=== PATIENT | male | born 1960 | race Hispanic/Latino ===

== ENCOUNTER 2017-10-18 16:57 | Emergency (ER) | payer MEDICAID ==
[~2017-10-18 16:57] MED LIST: ALBU8.5H8 PUFF; AMLO5TAB2 PO; ATOR40TA69 PO; FLUT1DIS3 PUFF; LISI-617 PO; METF500T6 PO; TAMS0.4C32 PO; TRAM50TA4 PO
[2017-10-18 17:45] LABS: BASOPHILS % (AUTO) 0.7 % (0.0-5.0); EOSINOPHILS % (AUTO) 1.5 % (0.0-8.0); LYMPHOCYTES % (AUTO) 25.2 % (21.0-51.0); MEAN CORPUSCULAR HEMOGLOBIN 30.2 pg (27.0-33.0); MEAN CORPUSCULAR HGB CONC 33.7 g/dL (32.0-36.0); MEAN CORPUSCULAR VOLUME 89.6 fL (79-99); MONOCYTES % (AUTO) 6.5 % (3.0-13.0); NEUTROPHILS % (AUTO) 66.1 % (40.0-77.0); PLATELET COUNT (AUTO) 267 K/uL (130-400); RED BLOOD CELL COUNT(AUTO) 4.69 MIL/uL (4.50-6.20); RED CELL DISTRIBUTION WIDTH 13.6 % (11.0-15.5); WHITE BLOOD COUNT (AUTO) 8.4 K/uL (4.8-10.8)
[2017-10-18 17:56] LABS: CREATININE 1.2 mg/dL (0.5-1.5)
[2017-10-18 17:57] LABS: INR 0.9 (0.85-1.15); PARTIAL THROMBOPLASTIN TIME 26.1 SEC (26.3-35.5); PROTHROMBIN TIME 9.5 SEC (9.6-11.6)
[2017-10-18] MEDS ORDERED: IOPAMIDOL-370 75 ML VIAL IV ONE (18:07)
[2017-10-18 18:09] LABS: ALBUMIN 3.6 g/dL (3.5-5.0); BILIRUBIN,TOTAL 0.3 mg/dL (0.2-1.0); CREATINE KINASE MB 1.6 ng/mL (0.5-3.6); TOTAL PROTEIN, SERUM 7.3 g/dL (6.0-8.3)
[2017-10-18] MEDS ORDERED: ONDANSETRON HCL MDV 20ML 2 MG/ML VIAL ONE (18:51)
[2017-10-18] MEDS ORDERED: MORPHINE SULFATE 4 MG/1ML SYG ONE (18:51)
[2017-10-18 19:14] LABS: APPEARANCE,URINE Clear (CLEAR); BILIRUBIN,URINE Negative (NEGATIVE); COLOR,URINE Yellow (YELLOW); GLUCOSE, URINE (UA) Negative (NEGATIVE); KETONES,URINE Negative (NEGATIVE); LEUKOCYTE ESTERASE ,URINE Negative (NEGATIVE); NITRATE,URINE Negative (NEGATIVE); OCCULT BLOOD,URINE Negative (NEGATIVE); PROTEIN,URINE Negative (NEGATIVE); UROBILINOGEN,URINE 0.2 mg/dL (0.2-1.0)
== END 2017-10-18 20:27 | disposition home or self-care (01) ==
LOC: EDH 16:57
DX: R10.30 Lower abdominal pain, unspecified (principal); E11.9 Type 2 diabetes mellitus without complications; I10 Essential (primary) hypertension; Z72.0 Tobacco use; Z98.890 Other specified postprocedural states
CPT/HCPCS: 36415; 74177; 80053; 81003; 82550; 82553; 83690; 84484; 85025; 85610; 85730; 93005; 96374; 96375; 99285; J2270; Q9967

== ENCOUNTER 2017-12-07 17:47 | Emergency (ER) | payer MEDICAID ==
[2017-12-07] MEDS ORDERED: KETOROLAC TROMETHAMINE 30MG/ML ONE (18:07)
[2017-12-07] MEDS ORDERED: SODIUM CHLORIDE 0.9% 1000ML 1,000 ML IV ONE (18:07)
[2017-12-07] MEDS ORDERED: ONDANSETRON HCL 4 MG/2 ML VIAL ONE (18:08)
[2017-12-07 18:13] LABS: BASOPHILS % (AUTO) 0.7 % (0.0-5.0); EOSINOPHILS % (AUTO) 0.9 % (0.0-8.0); HEMATOCRIT 40.9 % (42-54); LYMPHOCYTES % (AUTO) 23.3 % (21.0-51.0); MEAN CORPUSCULAR HEMOGLOBIN 30.9 pg (27.0-33.0); MEAN CORPUSCULAR HGB CONC 34.1 g/dL (32.0-36.0); MEAN CORPUSCULAR VOLUME 90.7 fL (79-99); MONOCYTES % (AUTO) 8.3 % (3.0-13.0); NEUTROPHILS % (AUTO) 66.8 % (40.0-77.0); PLATELET COUNT (AUTO) 247 K/uL (130-400); RED BLOOD CELL COUNT(AUTO) 4.51 MIL/uL (4.50-6.20); RED CELL DISTRIBUTION WIDTH 13.9 % (11.0-15.5); WHITE BLOOD COUNT (AUTO) 8.6 K/uL (4.8-10.8)
[2017-12-07 18:22] LABS: CREATININE 1.5 mg/dL (0.5-1.5)
[2017-12-07 18:27] LABS: BILIRUBIN,DIRECT 0.1 mg/dL (0.0-0.3); BILIRUBIN,TOTAL 0.4 mg/dL (0.2-1.0); TOTAL PROTEIN, SERUM 7.5 g/dL (6.0-8.3)
[2017-12-07 18:46] LABS: APPEARANCE,URINE CLOUDY (CLEAR); BILIRUBIN,URINE NEGATIVE (NEGATIVE); COLOR,URINE YELLOW (YELLOW); GLUCOSE, URINE (UA) NEGATIVE (NEGATIVE); KETONES,URINE NEGATIVE (NEGATIVE); LEUKOCYTE ESTERASE ,URINE NEGATIVE (NEGATIVE); NITRATE,URINE NEGATIVE (NEGATIVE); OCCULT BLOOD,URINE LARGE (NEGATIVE); PH,URINE 5.5 (5.0-8.0); PROTEIN,URINE TRACE (NEGATIVE); UROBILINOGEN,URINE 0.2 mg/dL (0.2-1.0)
[2017-12-07 19:00] LABS: RBC,URINE >100 /HPF (0-1); WBC,URINE 0-1 /HPF (0-1)
[2017-12-07 19:01] LABS: BACTERIA,URINE Few /HPF (None Seen); SQUAMOUS EPITHELIAL CELL,UR Rare /HPF (0-2); URIC ACID CRYSTALS,URINE Few /LPF (None Seen)
== END 2017-12-07 21:32 | disposition home or self-care (01) ==
LOC: EDH 17:47
DX: N23 Unspecified renal colic (principal); E11.9 Type 2 diabetes mellitus without complications; I10 Essential (primary) hypertension; Z72.0 Tobacco use
CPT/HCPCS: 36415; 74176; 80048; 80076; 81001; 82550; 83690; 85025; 93005; 96374; 96375; 99285; J1885; J2405; J7030

== ENCOUNTER → 2018-05-04 | Outpatient (CLI) | payer MEDICAID ==
[~2018-05-04] MED LIST changes: -AMLO5TAB2 PO; +AMLO5TAB7 PO; +METF-444 PO; -METF500T6 PO
== END | disposition home or self-care (01) ==
LOC: SHCH 07:35
PROVIDERS: ATTEND Internal Medicine Cardiovascular Disease
DX: I71.4 Abdominal aortic aneurysm, without rupture (principal)
CPT/HCPCS: 93978

== ENCOUNTER 2018-06-01 12:00 | Observation (INO) | payer MEDICAID ==
[~2018-06-01] VITALS: Ht 175.3 cm; Wt 78.5 kg
[~2018-06-01 12:00] MED LIST changes: -AMLO5TAB7 PO; +AMLO5TAB9 PO; -ATOR40TA69 PO; -TRAM50TA4 PO
[2018-08-17 11:41] VITALS: BP 140/73
[2018-08-17 11:43] LABS: CREATININE 1.1 mg/dL (0.5-1.5); POTASSIUM 4.4 mmol/L (3.5-5.1)
[2018-08-17] MEDS ORDERED: NEO/5DRO7 OU (13:01)
[2018-08-17] MEDS ORDERED: VITAMIN D2 PO (13:01)
[2018-08-17] MEDS ORDERED: METO25TA6 PO (13:01)
[2018-08-17] MEDS ORDERED: CEFAZOLIN SODIUM 1 GM VIAL IVP SCH (15:30)
[2018-08-18] VITALS (25 sets, daily range): BP systolic 103–146; BP diastolic 56–88
[2018-08-18] MEDS ORDERED: SODIUM CHLORIDE 0.9% 1000ML 1,000 ML IV ONE (06:37)
[2018-08-18] MEDS ORDERED: ONDANSETRON HCL 4 MG/2 ML VIAL ONE ×2 (07:26→10:36)
[2018-08-18] MEDS ORDERED: DEXAMETHASONE SOD PHOSPHATE 10MG/ML 1ML VIAL ONE (07:26)
[2018-08-18] MEDS ORDERED: FENTANYL CITRATE PF 50 MCG/1 ML 2ML VIAL ONE (07:26)
[2018-08-18] MEDS ORDERED: LIDOCAINE PF 2% 5ML ABBOJECT ONE (07:26)
[2018-08-18] MEDS ORDERED: ROCURONIUM 10MG/1ML SYR 10 MG/ML ML ONE (07:27)
[2018-08-18] MEDS ORDERED: MIDAZOLAM HCL 1 MG/ML 2ML VIAL ONE (07:27)
[2018-08-18] MEDS ORDERED: NEOSTIGMINE 5MG/5ML SYR IV ONE (07:27)
[2018-08-18] MEDS ORDERED: PROPOFOL 10 MG/ML 20ML VIAL IV ONE (07:27)
[2018-08-18] MEDS ORDERED: PHENYLEPHRINE HCL 10 MG/ML 1ML VIAL IV ONE ×2 (07:45)
[2018-08-18] MEDS ORDERED: GLYCOPYRROLATE 1 MG/5 ML SYRINGE ONE (08:07)
[2018-08-18] MEDS ORDERED: ROPIVACAINE 0.5% 5MG/ML 30ML IJ ONE (08:54)
[2018-08-18] MEDS ORDERED: MEPERIDINE-PF 25 MG/ML SYG ONE ×2 (10:06→10:12)
[2018-08-18 10:34] LABS: HEMATOCRIT 38.9 % (42-54)
[2018-08-18] MEDS ORDERED: MORPHINE SULFATE 10 MG/ML 1ML VIAL ONE (11:57)
[2018-08-18] MEDS ORDERED: MORPHINE SULFATE 5 MG/ML VIAL ONE (11:58)
[2018-08-18] MEDS ORDERED: PROMETHAZINE HCL 25 MG/ML 1ML AMPULE IM ONE (11:58)
[2018-08-18] MEDS ORDERED: CEFAZOLIN SODIUM 1 GM VIAL ONE (11:59)
[2018-08-18] MEDS ORDERED: LACTATED RINGERS 1000ML 1,000 ML IV ONE (11:59)
[2018-08-18] MEDS ORDERED: MAGNESIUM HYDROXIDE 30 ML/UDCUP PO PRN (12:45)
[2018-08-18] MEDS ORDERED: BISACODYL 10 MG SUPP.RECT RC PRN (12:45)
[2018-08-18] MEDS ORDERED: MORPHINE SULFATE 10 MG/ML 1ML SYG IM PRN (12:45)
[2018-08-18] MEDS ORDERED: LACTATED RINGERS 1000ML 1,000 ML IV SCH (12:45)
[2018-08-18] MEDS ORDERED: PROMETHAZINE HCL 25 MG/ML 1ML AMPULE IM PRN (12:45)
[2018-08-18] MEDS ORDERED: MORPHINE SULFATE 5 MG/ML VIAL IM PRN (12:49)
[2018-08-18] MEDS: CEFAZOLIN SODIUM 1 GM VIAL IVP SCH ×2 (14:04→21:07)
[2018-08-18] MEDS ORDERED: VITAMIN D2 PO SCH (16:30)
[2018-08-18] MEDS ORDERED: ONDANSETRON HCL 4 MG/2 ML VIAL IVP PRN (16:30)
--- NOTE | 2018-08-18 16:46 | NUR ---
DCP CM met with pt discussed dc plans. Pt is independent prior to surgery, lives at home with spouse. Denies any equipments/services. Pt feels safe to go back home, still drives, spouse able to assist with transportation and needs as necessary. DC plan to home once stable. CM to cont to follow up. Addendum: 08/18/18 at 1648 by NATASHA NETTLES LVN CM Amended: Links added.
[2018-08-18 18:11] LABS: HEMATOCRIT 39.8 % (42-54)
[2018-08-18] MEDS: MORPHINE SULFATE 5 MG/ML VIAL IV PRN (18:40)
[2018-08-18] MEDS: METOPROLOL TARTRATE 25 MG TAB PO SCH (19:51)
--- NOTE | 2018-08-18 20:00 | NUR ---
assessment note patient awake, alert,ox3, no sob, no c.o pain at this time, encourage deep breathing exercises and reinforce is as previously done, dressing left shoulder d/i, apply ice as ordered,teach plan of care and expected outcome , patient verbalizes understanding via teach back
[2018-08-18] MEDS ORDERED: TAMSULOSIN HCL 0.4 MG CAP.ER.24H PO SCH (21:00)
[2018-08-18] MEDS ORDERED: LISINOPRIL 5 MG TABLET PO SCH (21:00)
[2018-08-18] MEDS: KETOROLAC TROMETHAMINE 30MG/ML IV PRN (21:44)
[2018-08-19 00:11] VITALS: BP 138/83
[2018-08-19] MEDS: MORPHINE SULFATE 5 MG/ML VIAL IV PRN ×2 (00:17→10:56)
[2018-08-19 04:00] VITALS: BP 136/84
[2018-08-19] MEDS: CEFAZOLIN SODIUM 1 GM VIAL IVP SCH (05:01)
[2018-08-19 06:18] LABS: HEMATOCRIT 40.4 % (42-54)
[2018-08-19] MEDS ORDERED: MORPHINE SULFATE 2 MG/ML 1ML SYG ONE (06:51)
[2018-08-19 08:00] VITALS: BP 153/87
[2018-08-19] MEDS: METOPROLOL TARTRATE 25 MG TAB PO SCH (08:50)
[2018-08-19] MEDS: KETOROLAC TROMETHAMINE 30MG/ML IV PRN ×2 (08:50→14:46)
[2018-08-19] MEDS ORDERED: AMLODIPINE BESYLATE 5 MG TAB PO SCH (09:00)
[2018-08-19 11:06] VITALS: BP 140/82
[2018-08-19] MEDS ORDERED: TYL3 PO (13:26)
--- NOTE | 2018-08-19 16:00 | NUR ---
DISCHARGE DISCHARGE TEACHING DONE WITH PATIENT AND PARTNER USING TEACHBACK METHOD, VERBALIZED UNDERSTANDING. NO NOTED SOB OR DISTRESS. PER PT, TORADOL IV PRN GIVEN PRIOR TO DISCHARGE RELIEVED PAIN. IV REMOVED, CATH TIP INTACT. DRESSING TO LEFT SHOULDER CHANGED, PER DR. DICKINSON. INCISION IS DRY AND INTACT, ABDUCTION PILLOW IN PLACE. NEW MEDICATION ADMINISTRATION TEACHING DONE WITH PATIENT, VERBALIZED UNDERSTANDING. PT AWARE OF NEED TO ATTEND DR. DICKINSON APPOINTMENT. PATIENT IS AWARE OF NEED TO SET UP APPOINTMENT WITH DAVID RAMIREZ MD. PENDING TO BE WHEELED DOWNSTAIRS.
[2018-08-25] MEDS ORDERED: ERGOCALCIFEROL (VITAMIN D2) 50,000 UNIT CAPSULE PO SCH (09:00)
== END 2018-08-19 16:00 | disposition home or self-care (01) ==
LOC: EDSTATUS 12:00 → DAHIP 08-18 06:28 → 4AH 08-18 10:32
DX: M75.42 Impingement syndrome of left shoulder (principal); M75.102 Unspecified rotator cuff tear or rupture of left shoulder, not specified as traumatic; E11.51 Type 2 diabetes mellitus with diabetic peripheral angiopathy without gangrene; H91.90 Unspecified hearing loss, unspecified ear; I11.9 Hypertensive heart disease without heart failure; B19.20 Unspecified viral hepatitis C without hepatic coma; N20.0 Calculus of kidney; N40.0 Benign prostatic hyperplasia without lower urinary tract symptoms; F32.9 Major depressive disorder, single episode, unspecified; Z82.49 Family history of ischemic heart disease and other diseases of the circulatory system; Z82.5 Family history of asthma and other chronic lower respiratory diseases; Z79.899 Other long term (current) drug therapy
CPT/HCPCS: 23120; 23412; 29822; 29826; 36415 ×3; 80048; 82948 ×6; 85014 ×3; 85018 ×3; 88304; 88311; 94760; 96372; 96374; 96375; 96376 ×2; 97116 ×2; 97161; A4218; A4510; A4600; A4606; A4930; A6223; C1713 ×2; G0378 ×35; G8978; G8979; G8980; G8981; G8982; G8983; J0690 ×5; J1100; J1885 ×3; J2001; J2175 ×2; J2250; J2270 ×5; J2370 ×2; J2405 ×2; J2550; J2704; J2710; J2795; J3010; J3490; J7030 ×2; J7120

== ENCOUNTER 2018-08-20 09:46 | Emergency (ER) | payer MEDICAID ==
[~2018-08-20 09:46] MED LIST changes: +METO25TA6 PO; +NEO/5DRO7 OU; +TYL3 PO; +VITAMIN D2 PO
[2018-08-20] MEDS ORDERED: MORPHINE SULFATE 8 MG/ML VIAL ONE (10:13)
[2018-08-20] MEDS ORDERED: ONDANSETRON ODT 4 MG TAB ONE (10:13)
== END 2018-08-20 10:44 | disposition home or self-care (01) ==
LOC: EDH 09:46
DX: G89.18 Other acute postprocedural pain (principal); M25.512 Pain in left shoulder; I10 Essential (primary) hypertension; E11.9 Type 2 diabetes mellitus without complications; J44.9 Chronic obstructive pulmonary disease, unspecified; Z98.890 Other specified postprocedural states; Z72.0 Tobacco use
CPT/HCPCS: 96372; 99283; J2270

== ENCOUNTER 2019-04-26 18:24 | Emergency (ER) | payer MEDICAID ==
[2019-04-26] MEDS ORDERED: ONDANSETRON HCL 4 MG/2 ML VIAL ONE (18:49)
[2019-04-26] MEDS ORDERED: MORPHINE SULFATE 4 MG/1ML SYG ONE (18:50)
[2019-04-26 18:57] LABS: BASOPHILS % (AUTO) 0.4 % (0.0-5.0); EOSINOPHILS % (AUTO) 0.7 % (0.0-8.0); HEMATOCRIT 41.9 % (42-54); LYMPHOCYTES % (AUTO) 14.8 % (21.0-51.0); MEAN CORPUSCULAR HGB CONC 34.1 g/dL (32.0-36.0); MONOCYTES % (AUTO) 7.2 % (3.0-13.0); NEUTROPHILS % (AUTO) 76.9 % (40.0-77.0); PLATELET COUNT (AUTO) 214 K/uL (130-400); RED BLOOD CELL COUNT(AUTO) 4.46 MIL/uL (4.50-6.20); RED CELL DISTRIBUTION WIDTH 13.8 % (11.0-15.5); WHITE BLOOD COUNT (AUTO) 11.8 K/uL (4.8-10.8)
[2019-04-26] MEDS ORDERED: KETOROLAC TROMETHAMINE 30MG/ML ONE (19:00)
[2019-04-26 19:06] LABS: CREATININE 1.3 mg/dL (0.5-1.5)
[2019-04-26 19:11] LABS: ALBUMIN 3.9 g/dL (3.5-5.0); BILIRUBIN,TOTAL 0.3 mg/dL (0.2-1.0)
[2019-04-26 19:13] LABS: PARTIAL THROMBOPLASTIN TIME 28.1 SEC (26.3-35.5); PROTHROMBIN TIME 10.5 SEC (9.6-11.6)
== END 2019-04-26 21:09 | disposition home or self-care (01) ==
LOC: EDH 18:24
DX: N13.39 Other hydronephrosis (principal); N23 Unspecified renal colic; E11.9 Type 2 diabetes mellitus without complications; J44.9 Chronic obstructive pulmonary disease, unspecified; I10 Essential (primary) hypertension; F32.9 Major depressive disorder, single episode, unspecified; Z72.0 Tobacco use
CPT/HCPCS: 36415; 74176; 80053; 82550; 83690; 84484; 85025; 85610; 85730; 93005; 96374; 96375; 99285; J1885; J2270; J2405

== ENCOUNTER → 2019-08-21 | Outpatient (CLI) | payer MEDICAID ==
[~2019-08-21] MED LIST changes: +IOHEXOL 350 MG/ML 100ML INFUS..BTL IV ONE
== END | disposition home or self-care (01) ==
LOC: RAH 07:32
PROVIDERS: ATTEND Internal Medicine Cardiovascular Disease
DX: I71.4 Abdominal aortic aneurysm, without rupture (principal); Z95.828 Presence of other vascular implants and grafts
CPT/HCPCS: 74174; Q9967

== ENCOUNTER → 2020-09-23 | Outpatient (CLI) | payer MEDICAID ==
[~2020-09-23] MED LIST changes: +AMLO-257 PO; -AMLO5TAB9 PO; -LISI-617 PO; +LISI-809 PO
== END | disposition home or self-care (01) ==
LOC: RAH 09:40
PROVIDERS: ATTEND Internal Medicine Cardiovascular Disease
DX: I71.4 Abdominal aortic aneurysm, without rupture (principal); I70.203 Unspecified atherosclerosis of native arteries of extremities, bilateral legs
CPT/HCPCS: 74174; Q9967; 74175

== ENCOUNTER → 2020-12-27 | Outpatient (CLI) | payer MEDICAID ==
[~2020-12-27] MED LIST changes: -IOHEXOL 350 MG/ML 100ML INFUS..BTL IV ONE
== END | disposition home or self-care (01) ==
LOC: SLP 11-15 20:06
PROVIDERS: ATTEND Family Medicine
DX: R06.83 Snoring (principal); R40.0 Somnolence
CPT/HCPCS: 95810

== ENCOUNTER → 2021-01-17 | Outpatient (CLI) | payer MEDICAID | END | disposition home or self-care (01) | LOC: SLP 20:12 | PROVIDERS: ATTEND Family Medicine | DX: R06.83 Snoring (principal); R40.0 Somnolence | CPT/HCPCS: 95811 ==

== ENCOUNTER 2021-03-11 00:16 | Inpatient (IN) | payer MEDICAID ==
[2021-03-11] VITALS (26 sets, daily range): BP systolic 119–166; BP diastolic 56–78
[~2021-03-11] VITALS: Ht 180.3 cm; Wt 81.0 kg
[~2021-03-11 00:16] MED LIST changes: +ATOR10 PO; +CEPH500B PO; +CETI10TA57 PO; +KETO5DRO82 OU; +MULT-660 PO; -NEO/5DRO7 OU; +PREG150C46 PO; +SENN-178 PO; -TYL3 PO; -VITAMIN D2 PO
[2021-03-11] MEDS ORDERED: FENTANYL CITRATE PF 50 MCG/1 ML 2ML VIAL IVP ONE ×2 (02:00→04:00)
[2021-03-11] MEDS ORDERED: FENTANYL CITRATE PF 50 MCG/1 ML 2ML VIAL ONE (02:00)
[2021-03-11 03:55] LABS: BASOPHILS % (AUTO) 0.5 % (0.0-5.0); EOSINOPHILS % (AUTO) 0.4 % (0.0-8.0); HEMATOCRIT 36.3 % (42-54); LYMPHOCYTES % (AUTO) 27.1 % (21.0-51.0); MEAN CORPUSCULAR HGB CONC 32.2 g/dL (32.0-36.0); MEAN CORPUSCULAR VOLUME 93.1 fL (79-99); MONOCYTES % (AUTO) 7.1 % (3.0-13.0); NEUTROPHILS % (AUTO) 64.7 % (40.0-77.0); PLATELET COUNT (AUTO) 223 K/uL (130-400); RED CELL DISTRIBUTION WIDTH 14.2 % (11.0-15.5); WHITE BLOOD COUNT (AUTO) 10.8 K/uL (4.8-10.8)
[2021-03-11] MEDS ORDERED: NITROGLYCERIN 0.4 MG SL TAB SL PRN (04:00)
[2021-03-11] MEDS ORDERED: ONDANSETRON 4MG INJ IV PRN (04:00)
[2021-03-11 04:10] LABS: PROTHROMBIN TIME 10.9 SEC (9.6-11.6)
[2021-03-11 04:12] LABS: CREATININE 1.1 mg/dL (0.5-1.5); PARTIAL THROMBOPLASTIN TIME 25.5 SEC (26.3-35.5); POTASSIUM 4.1 mmol/L (3.5-5.1)
[2021-03-11 04:14] LABS: ALBUMIN 3.7 g/dL (3.5-5.0); BILIRUBIN,TOTAL 0.4 mg/dL (0.2-1.0); TOTAL PROTEIN, SERUM 7.2 g/dL (6.0-8.3)
[2021-03-11] MEDS ORDERED: MORPHINE 2 MG SYG ONE (05:07)
[2021-03-11] MEDS: SIMETHICONE 80 MG TAB.CHEW PO SCH (05:18)
[2021-03-11] MEDS: INSULIN HUMULIN R 100 UNIT/ML 3ML SQ SCH ×4 (06:00→20:45)
[2021-03-11] MEDS ORDERED: GLUCAGON 1MG KIT 1 MG ML IM PRN (06:00)
[2021-03-11] MEDS: 0.9%NACL 1000ML 1,000 ML IV SCH ×3 (06:00→16:00)
[2021-03-11] MEDS ORDERED: DEXTROSE 50%-WATER 50 ML DISP.SYRIN IV PRN (06:00)
[2021-03-11] MEDS: HYDROMORPHONE 0.5 MG SYG (0.5MG/0.5ML) IVP SCH ×2 (08:02→11:32)
[2021-03-11] MEDS: MORPHINE 2 MG SYG IVP PRN ×5 (08:30→23:40)
[2021-03-11] MEDS: FAMOTIDINE 20MG VIAL IV SCH ×2 (09:00→19:53)
[2021-03-11] MEDS: AMLODIPINE 5 MG TAB PO SCH (09:00)
[2021-03-11] MEDS ORDERED: LIDOCAINE PF 100MG/5ML (2%) SYRINGE 5ML ONE (09:57)
[2021-03-11] MEDS ORDERED: SUCCINYLCHOLINE CHLORIDE 20 MG/ML 10 ML VIAL ONE (09:57)
[2021-03-11] MEDS ORDERED: PROPOFOL 10 MG/ML 20ML VIAL IV ONE (09:58)
[2021-03-11] MEDS ORDERED: MIDAZOLAM HCL 1 MG/ML 2ML VIAL ONE (09:58)
[2021-03-11] MEDS ORDERED: ROCURONIUM 10MG/1ML SYR 10 MG/ML ML ONE (09:58)
[2021-03-11] MEDS ORDERED: EPHEDRINE SULFATE 50 MG/ML AMPULE ONE (10:10)
[2021-03-11] MEDS ORDERED: ROPIVACAINE 0.5% 5MG/ML 30ML IJ ONE (10:28)
[2021-03-11] MEDS ORDERED: [UNRECOGNIZED DRUG - REMARK] MISC STA (18:18)
[2021-03-11] MEDS: LISINOPRIL 5 MG TABLET PO SCH (19:52)
[2021-03-11] MEDS: ATORVASTATIN 10 MG TABLET PO SCH (19:52)
[2021-03-11] MEDS: TAMSULOSIN HCL 0.4 MG CAP.ER.24H PO SCH (19:52)
[2021-03-11] MEDS: METOPROLOL TARTRATE 25 MG TAB PO SCH (19:52)
[2021-03-11] MEDS: PREGABALIN 75 MG CAPSULE PO SCH (20:49)
[2021-03-12] VITALS (7 sets, daily range): BP systolic 122–157; BP diastolic 60–77
[2021-03-12] MEDS: 0.9%NACL 1000ML 1,000 ML IV SCH ×4 (02:00→22:07)
[2021-03-12] MEDS: SIMETHICONE 80 MG TAB.CHEW PO SCH (02:44)
[2021-03-12] MEDS: INSULIN HUMULIN R 100 UNIT/ML 3ML SQ SCH ×3 (05:22→16:24)
[2021-03-12 05:43] LABS: BASOPHILS % (AUTO) 0.5 % (0.0-5.0); EOSINOPHILS % (AUTO) 1.6 % (0.0-8.0); HEMATOCRIT 36.7 % (42-54); MEAN CORPUSCULAR HEMOGLOBIN 29.2 pg (27.0-33.0); MEAN CORPUSCULAR HGB CONC 31.6 g/dL (32.0-36.0); MEAN CORPUSCULAR VOLUME 92.4 fL (79-99); MONOCYTES % (AUTO) 8.9 % (3.0-13.0); NEUTROPHILS % (AUTO) 59.7 % (40.0-77.0); PLATELET COUNT (AUTO) 218 K/uL (130-400); RED BLOOD CELL COUNT(AUTO) 3.97 MIL/uL (4.50-6.20); WHITE BLOOD COUNT (AUTO) 10.6 K/uL (4.8-10.8)
[2021-03-12 06:13] LABS: ALBUMIN 3.2 g/dL (3.5-5.0); BILIRUBIN,TOTAL 0.4 mg/dL (0.2-1.0); CREATININE 1.1 mg/dL (0.5-1.5); MAGNESIUM 1.9 mg/dL (1.80-2.40); POTASSIUM 4.1 mmol/L (3.5-5.1); TOTAL PROTEIN, SERUM 6.5 g/dL (6.0-8.3)
[2021-03-12] MEDS: PREGABALIN 75 MG CAPSULE PO SCH ×2 (08:24→20:00)
[2021-03-12] MEDS: METOPROLOL TARTRATE 25 MG TAB PO SCH ×2 (08:24→19:59)
[2021-03-12] MEDS: AMLODIPINE 5 MG TAB PO SCH (08:25)
[2021-03-12] MEDS: FAMOTIDINE 20MG VIAL IV SCH ×2 (08:25→19:59)
[2021-03-12] MEDS: MORPHINE 2 MG SYG IVP PRN ×3 (08:26→20:02)
[2021-03-12] MEDS: TAMSULOSIN HCL 0.4 MG CAP.ER.24H PO SCH (19:59)
[2021-03-12] MEDS: ATORVASTATIN 10 MG TABLET PO SCH (19:59)
[2021-03-12] MEDS: LISINOPRIL 5 MG TABLET PO SCH (20:00)
[2021-03-13] MEDS: MORPHINE 2 MG SYG IVP PRN ×5 (02:12→20:52)
[2021-03-13] MEDS: SIMETHICONE 80 MG TAB.CHEW PO SCH (03:56)
[2021-03-13 04:00] VITALS: BP 134/87
[2021-03-13] MEDS: INSULIN HUMULIN R 100 UNIT/ML 3ML SQ SCH ×4 (05:20→21:00)
[2021-03-13] MEDS: 0.9%NACL 1000ML 1,000 ML IV SCH ×2 (08:00→18:00)
[2021-03-13] MEDS: AMLODIPINE 5 MG TAB PO SCH (08:05)
[2021-03-13] MEDS: FAMOTIDINE 20MG VIAL IV SCH ×2 (08:05→22:26)
[2021-03-13 08:06] VITALS: BP 136/80
[2021-03-13] MEDS: PREGABALIN 75 MG CAPSULE PO SCH ×2 (08:06→22:27)
[2021-03-13] MEDS: METOPROLOL TARTRATE 25 MG TAB PO SCH ×2 (08:06→22:26)
[2021-03-13 11:34] VITALS: BP 103/52
[2021-03-13 16:01] VITALS: BP 117/68
[2021-03-13 19:50] VITALS: BP 133/68
[2021-03-13] MEDS: ATORVASTATIN 10 MG TABLET PO SCH (22:27)
[2021-03-13] MEDS: LISINOPRIL 5 MG TABLET PO SCH (22:27)
[2021-03-13] MEDS: TAMSULOSIN HCL 0.4 MG CAP.ER.24H PO SCH (22:27)
[2021-03-13 23:32] VITALS: BP 140/80
[2021-03-14] MEDS: MORPHINE 2 MG SYG IVP PRN ×4 (02:36→20:10)
[2021-03-14] MEDS: 0.9%NACL 1000ML 1,000 ML IV SCH ×3 (04:00→20:01)
[2021-03-14 04:07] VITALS: BP 125/68
[2021-03-14] MEDS: SIMETHICONE 80 MG TAB.CHEW PO SCH ×2 (05:00→21:19)
[2021-03-14] MEDS: INSULIN HUMULIN R 100 UNIT/ML 3ML SQ SCH ×4 (06:19→20:49)
[2021-03-14 08:00] VITALS: BP 127/73
[2021-03-14] MEDS: FAMOTIDINE 20MG VIAL IV SCH ×2 (08:14→20:10)
[2021-03-14] MEDS: AMLODIPINE 5 MG TAB PO SCH (08:14)
[2021-03-14] MEDS: METOPROLOL TARTRATE 25 MG TAB PO SCH ×2 (08:14→20:09)
[2021-03-14] MEDS: PREGABALIN 75 MG CAPSULE PO SCH ×2 (08:14→20:09)
[2021-03-14] MEDS: ENOXAPARIN SODIUM 40 MG/0.4 ML SYRINGE SQ SCH ×2 (08:15→08:17)
[2021-03-14 11:54] VITALS: BP 141/83
[2021-03-14 12:10] LABS: BASOPHILS % (AUTO) 0.7 % (0.0-5.0); EOSINOPHILS % (AUTO) 9.9 % (0.0-8.0); HEMATOCRIT 37.7 % (42-54); LYMPHOCYTES % (AUTO) 25.1 % (21.0-51.0); MEAN CORPUSCULAR HEMOGLOBIN 29.8 pg (27.0-33.0); MEAN CORPUSCULAR HGB CONC 31.6 g/dL (32.0-36.0); MEAN CORPUSCULAR VOLUME 94.3 fL (79-99); NEUTROPHILS % (AUTO) 54.1 % (40.0-77.0); PLATELET COUNT (AUTO) 220 K/uL (130-400); RED CELL DISTRIBUTION WIDTH 14.4 % (11.0-15.5); WHITE BLOOD COUNT (AUTO) 9.5 K/uL (4.8-10.8)
[2021-03-14 12:24] LABS: ALBUMIN 3.3 g/dL (3.5-5.0); BILIRUBIN,TOTAL 0.5 mg/dL (0.2-1.0); CREATININE 1.2 mg/dL (0.5-1.5); POTASSIUM 4.7 mmol/L (3.5-5.1)
[2021-03-14 16:00] VITALS: BP 134/72
[2021-03-14 19:15] VITALS: BP 131/74
[2021-03-14] MEDS: ATORVASTATIN 10 MG TABLET PO SCH (20:09)
[2021-03-14] MEDS: LISINOPRIL 5 MG TABLET PO SCH (20:09)
[2021-03-14] MEDS: TAMSULOSIN HCL 0.4 MG CAP.ER.24H PO SCH (20:09)
[2021-03-14 23:57] VITALS: BP 132/78
[2021-03-15] MEDS: MORPHINE 2 MG SYG IVP PRN ×2 (02:11→14:24)
[2021-03-15 03:55] VITALS: BP 130/70
[2021-03-15 04:32] LABS: APPEARANCE,URINE Clear (CLEAR); BILIRUBIN,URINE Negative (NEGATIVE); COLOR,URINE Yellow (YELLOW); GLUCOSE, URINE (UA) Negative (NEGATIVE); KETONES,URINE Trace mg/dL (NEGATIVE); LEUKOCYTE ESTERASE ,URINE Negative (NEGATIVE); NITRATE,URINE Negative (NEGATIVE); OCCULT BLOOD,URINE Negative (NEGATIVE); PH,URINE 5.5 (5.0-8.0); PROTEIN,URINE Negative (NEGATIVE)
[2021-03-15] MEDS: INSULIN HUMULIN R 100 UNIT/ML 3ML SQ SCH ×4 (05:43→21:00)
[2021-03-15 07:59] VITALS: BP 116/66
[2021-03-15] MEDS: ENOXAPARIN SODIUM 40 MG/0.4 ML SYRINGE SQ SCH ×3 (08:03→22:56)
[2021-03-15] MEDS: AMLODIPINE 5 MG TAB PO SCH (08:16)
[2021-03-15] MEDS: PREGABALIN 75 MG CAPSULE PO SCH ×2 (08:17→19:52)
[2021-03-15] MEDS: FAMOTIDINE 20MG VIAL IV SCH ×2 (08:17→19:53)
[2021-03-15] MEDS: METOPROLOL TARTRATE 25 MG TAB PO SCH ×2 (08:17→19:52)
[2021-03-15] MEDS: 0.9%NACL 1000ML 1,000 ML IV SCH ×2 (10:00→20:00)
[2021-03-15 11:56] LABS: BASOPHILS % (AUTO) 0.6 % (0.0-5.0); EOSINOPHILS % (AUTO) 10.5 % (0.0-8.0); HEMATOCRIT 36.2 % (42-54); LYMPHOCYTES % (AUTO) 24.5 % (21.0-51.0); MEAN CORPUSCULAR HEMOGLOBIN 29.9 pg (27.0-33.0); MEAN CORPUSCULAR HGB CONC 31.8 g/dL (32.0-36.0); NEUTROPHILS % (AUTO) 55.2 % (40.0-77.0); PLATELET COUNT (AUTO) 211 K/uL (130-400); RED BLOOD CELL COUNT(AUTO) 3.85 MIL/uL (4.50-6.20); RED CELL DISTRIBUTION WIDTH 14.2 % (11.0-15.5); WHITE BLOOD COUNT (AUTO) 9.7 K/uL (4.8-10.8)
[2021-03-15 12:00] VITALS: BP 114/64
[2021-03-15 13:09] LABS: ALBUMIN 3.2 g/dL (3.5-5.0); BILIRUBIN,TOTAL 0.5 mg/dL (0.2-1.0); CREATININE 1.2 mg/dL (0.5-1.5); POTASSIUM 4.4 mmol/L (3.5-5.1); TOTAL PROTEIN, SERUM 6.6 g/dL (6.0-8.3)
[2021-03-15 16:00] VITALS: BP 130/68
[2021-03-15] MEDS: SIMETHICONE 80 MG TAB.CHEW PO SCH (18:17)
[2021-03-15 19:46] VITALS: BP 136/76
[2021-03-15] MEDS: ATORVASTATIN 10 MG TABLET PO SCH (19:52)
[2021-03-15] MEDS: LISINOPRIL 5 MG TABLET PO SCH (19:53)
[2021-03-15] MEDS: TAMSULOSIN HCL 0.4 MG CAP.ER.24H PO SCH (19:53)
[2021-03-15] MEDS: HYDROCODONE/ACETAMINOPHEN 5/325 MG TAB PO PRN (23:07)
[2021-03-15 23:54] VITALS: BP 118/64
[2021-03-16] VITALS (27 sets, daily range): BP systolic 90–145; BP diastolic 57–79
[2021-03-16] MEDS: MORPHINE 2 MG SYG IVP PRN ×5 (02:06→23:55)
[2021-03-16 05:57] LABS: BASOPHILS % (AUTO) 0.5 % (0.0-5.0); EOSINOPHILS % (AUTO) 8.4 % (0.0-8.0); HEMATOCRIT 36.4 % (42-54); LYMPHOCYTES % (AUTO) 39.9 % (21.0-51.0); MEAN CORPUSCULAR HEMOGLOBIN 29.4 pg (27.0-33.0); MEAN CORPUSCULAR HGB CONC 31.6 g/dL (32.0-36.0); MEAN CORPUSCULAR VOLUME 93.1 fL (79-99); MONOCYTES % (AUTO) 9.5 % (3.0-13.0); NEUTROPHILS % (AUTO) 41.5 % (40.0-77.0); PLATELET COUNT (AUTO) 243 K/uL (130-400); RED BLOOD CELL COUNT(AUTO) 3.91 MIL/uL (4.50-6.20); WHITE BLOOD COUNT (AUTO) 8.4 K/uL (4.8-10.8)
[2021-03-16] MEDS: 0.9%NACL 1000ML 1,000 ML IV SCH (06:00)
[2021-03-16 06:27] LABS: ALBUMIN 3.5 g/dL (3.5-5.0); BILIRUBIN,TOTAL 0.5 mg/dL (0.2-1.0); CREATININE 1.1 mg/dL (0.5-1.5); POTASSIUM 4.2 mmol/L (3.5-5.1); TOTAL PROTEIN, SERUM 7.1 g/dL (6.0-8.3)
[2021-03-16] MEDS: INSULIN HUMULIN R 100 UNIT/ML 3ML SQ SCH ×4 (07:21→20:17)
[2021-03-16] MEDS: FAMOTIDINE 20MG VIAL IV SCH ×2 (07:45→20:06)
[2021-03-16] MEDS: HYDROCODONE/ACETAMINOPHEN 5/325 MG TAB PO PRN ×3 (07:45→22:06)
[2021-03-16] MEDS: PREGABALIN 75 MG CAPSULE PO SCH ×2 (07:45→20:06)
[2021-03-16] MEDS: METOPROLOL TARTRATE 25 MG TAB PO SCH ×3 (07:45→20:06)
[2021-03-16] MEDS: AMLODIPINE 5 MG TAB PO SCH (07:46)
[2021-03-16] MEDS: CEFAZOLIN SODIUM 1 GM VIAL ONE ×2 (08:04→08:30)
[2021-03-16] MEDS ORDERED: LIDOCAINE PF 100MG/5ML (2%) SYRINGE 5ML ONE (08:11)
[2021-03-16] MEDS ORDERED: GLYCOPYRROLATE 1 MG/5 ML SYRINGE ONE (08:11)
[2021-03-16] MEDS ORDERED: ONDANSETRON 4MG INJ ONE (08:11)
[2021-03-16] MEDS ORDERED: SUCCINYLCHOLINE CHLORIDE 20 MG/ML 10 ML VIAL ONE (08:11)
[2021-03-16] MEDS ORDERED: DEXAMETHASONE SOD PHOSPHATE 10MG/ML 1ML VIAL ONE ×2 (08:11→10:27)
[2021-03-16] MEDS ORDERED: MIDAZOLAM HCL 1 MG/ML 2ML VIAL ONE ×2 (08:12→09:16)
[2021-03-16] MEDS ORDERED: NEOSTIGMINE 5MG/5ML SYR IV ONE (08:12)
[2021-03-16] MEDS ORDERED: PROPOFOL 10 MG/ML 20ML VIAL IV ONE (08:12)
[2021-03-16] MEDS ORDERED: ROCURONIUM 10MG/1ML SYR 10 MG/ML ML ONE ×2 (08:12→09:05)
[2021-03-16] MEDS ORDERED: FENTANYL CITRATE PF 50 MCG/1 ML 2ML VIAL ONE ×2 (08:13→10:19)
[2021-03-16] MEDS ORDERED: KETAMINE 50MG/ML SYRINGE 50 MG/ML DISP.SYRIN IV ONE (08:17)
[2021-03-16] MEDS ORDERED: EPHEDRINE SULFATE 50 MG/ML AMPULE ONE ×2 (08:25→09:49)
[2021-03-16] MEDS ORDERED: PHENYLEPHRINE HCL 10 MG/ML 1ML VIAL IV ONE (08:28)
[2021-03-16] MEDS ORDERED: TRANEXAMIC ACID 1000MG/10ML ONE (08:53)
[2021-03-16] MEDS ORDERED: ALBUMIN (HUMAN) 25% 150 ML IV ONE (08:54)
[2021-03-16] MEDS ORDERED: VANCOMYCIN 1G VIAL ONE (09:56)
[2021-03-16] MEDS ORDERED: ROPIVACAINE 0.5% 5MG/ML 30ML IJ ONE (10:19)
[2021-03-16] MEDS: LACTATED RINGERS 1000ML 1,000 ML IV ONE (10:52)
[2021-03-16] MEDS: SIMETHICONE 80 MG TAB.CHEW PO SCH (18:23)
[2021-03-16] MEDS ORDERED: MORPHINE 2 MG SYG ONE (19:59)
[2021-03-16] MEDS: ATORVASTATIN 10 MG TABLET PO SCH (20:06)
[2021-03-16] MEDS: TAMSULOSIN HCL 0.4 MG CAP.ER.24H PO SCH (20:06)
[2021-03-16] MEDS: LISINOPRIL 5 MG TABLET PO SCH (20:07)
[2021-03-17 04:00] VITALS: BP 157/65
[2021-03-17] MEDS: MORPHINE 2 MG SYG IVP PRN ×4 (04:07→16:20)
[2021-03-17] MEDS: HYDROCODONE/ACETAMINOPHEN 5/325 MG TAB PO PRN ×3 (04:59→17:21)
[2021-03-17 05:09] LABS: BASOPHILS % (AUTO) 0.1 % (0.0-5.0); HEMATOCRIT 29.7 % (42-54); LYMPHOCYTES % (AUTO) 8.1 % (21.0-51.0); MEAN CORPUSCULAR HEMOGLOBIN 30.2 pg (27.0-33.0); MEAN CORPUSCULAR HGB CONC 32.3 g/dL (32.0-36.0); MEAN CORPUSCULAR VOLUME 93.4 fL (79-99); MONOCYTES % (AUTO) 8.3 % (3.0-13.0); PLATELET COUNT (AUTO) 216 K/uL (130-400); RED BLOOD CELL COUNT(AUTO) 3.18 MIL/uL (4.50-6.20); RED CELL DISTRIBUTION WIDTH 13.9 % (11.0-15.5); WHITE BLOOD COUNT (AUTO) 15.4 K/uL (4.8-10.8)
[2021-03-17] MEDS: INSULIN HUMULIN R 100 UNIT/ML 3ML SQ SCH ×3 (05:25→16:30)
[2021-03-17 05:34] LABS: ALBUMIN 3.4 g/dL (3.5-5.0); BILIRUBIN,TOTAL 0.3 mg/dL (0.2-1.0); CREATININE 1.2 mg/dL (0.5-1.5); POTASSIUM 4.2 mmol/L (3.5-5.1); TOTAL PROTEIN, SERUM 6.4 g/dL (6.0-8.3)
[2021-03-17 08:00] VITALS: BP 142/79
[2021-03-17] MEDS: PREGABALIN 75 MG CAPSULE PO SCH (08:24)
[2021-03-17] MEDS: METOPROLOL TARTRATE 25 MG TAB PO SCH (08:24)
[2021-03-17] MEDS: AMLODIPINE 5 MG TAB PO SCH (08:24)
[2021-03-17] MEDS: ENOXAPARIN SODIUM 40 MG/0.4 ML SYRINGE SQ SCH (08:25)
[2021-03-17] MEDS: FAMOTIDINE 20MG VIAL IV SCH (08:26)
[2021-03-17] MEDS ORDERED: HYDR-4060 PO (12:11)
[2021-03-17 16:00] VITALS: BP 134/70
== END 2021-03-17 17:55 | disposition home or self-care (01) | DRG 301 ==
LOC: EDH 00:16 → EDHIP 03:30 → 3BH 08:23
PROVIDERS: ADMIT Internal Medicine; ATTEND Internal Medicine
PROC: 0SWBXJZ Revision of Synthetic Substitute in Left Hip Joint, External Approach (ICD-10-PCS; 2021-03-11)
PROC: 3E0T33Z Introduction of Anti-inflammatory into Peripheral Nerves and Plexi, Percutaneous Approach (ICD-10-PCS; 2021-03-11)
PROC: 3E0T3BZ Introduction of Anesthetic Agent into Peripheral Nerves and Plexi, Percutaneous Approach (ICD-10-PCS; 2021-03-11 10:17)
PROC: 0SPS0JZ Removal of Synthetic Substitute from Left Hip Joint, Femoral Surface, Open Approach (ICD-10-PCS; 2021-03-16)
PROC: 0SRS03Z Replacement of Left Hip Joint, Femoral Surface with Ceramic Synthetic Substitute, Open Approach (ICD-10-PCS; principal; 2021-03-16 08:00)
DX: T84.021A Dislocation of internal left hip prosthesis, initial encounter (principal); E46 Unspecified protein-calorie malnutrition; M25.352 Other instability, left hip; E11.9 Type 2 diabetes mellitus without complications; E78.00 Pure hypercholesterolemia, unspecified; I10 Essential (primary) hypertension; J44.9 Chronic obstructive pulmonary disease, unspecified; E78.5 Hyperlipidemia, unspecified; N40.0 Benign prostatic hyperplasia without lower urinary tract symptoms; W01.0XXA Fall on same level from slipping, tripping and stumbling without subsequent striking against object, initial encounter; R26.2 Difficulty in walking, not elsewhere classified; Y79.2 Prosthetic and other implants, materials and accessory orthopedic devices associated with adverse incidents; Z20.822 Contact with and (suspected) exposure to COVID-19; R79.89 Other specified abnormal findings of blood chemistry; Z68.24 Body mass index [BMI] 24.0-24.9, adult; Z88.6 Allergy status to analgesic agent; Z88.8 Allergy status to other drugs, medicaments and biological substances; Y93.89 Activity, other specified; Y92.89 Other specified places as the place of occurrence of the external cause; Y99.8 Other external cause status; Z82.3 Family history of stroke; Z83.6 Family history of other diseases of the respiratory system; Z83.3 Family history of diabetes mellitus; Z82.0 Family history of epilepsy and other diseases of the nervous system; Z80.8 Family history of malignant neoplasm of other organs or systems; Z82.49 Family history of ischemic heart disease and other diseases of the circulatory system
CPT/HCPCS: 36415; 71045; 73502; 73503; 80053; 81003; 82948; 83735; 85025; 85610; 85730; 86850; 86900; 86901; 87635; 88300; 93005; 97039; A4606; G0378; J0330; J0690; J1100; J1170; J1650; J1815; J2001; J2250; J2370; J2405; J2704; J2710; J2795; J3010; J3370; J3490; J7030; J7120; P9047

== ENCOUNTER → 2022-03-30 | Outpatient (CLI) | payer MEDICAID ==
[~2022-03-30] MED LIST changes: -ALBU8.5H8 PUFF; -AMLO-257 PO; -ATOR10 PO; -CEPH500B PO; -CETI10TA57 PO; -FLUT1DIS3 PUFF; +HYDR-4060 PO; -KETO5DRO82 OU; -LISI-809 PO; -METF-444 PO; -METO25TA6 PO; -MULT-660 PO; -PREG150C46 PO; -SENN-178 PO; -TAMS0.4C32 PO
[2022-03-30 09:07] LABS: ALBUMIN 2.8 g/dL (3.5-5.0); CREATININE 1.1 mg/dL (0.5-1.5); POTASSIUM 4.3 mmol/L (3.5-5.1)
== END | disposition home or self-care (01) ==
LOC: LAB 08:07
PROVIDERS: ATTEND Physician Assistant
DX: I71.4 Abdominal aortic aneurysm, without rupture (principal)
CPT/HCPCS: 36415; 80053

== ENCOUNTER → 2022-04-07 | Outpatient (CLI) | payer MEDICAID ==
[~2022-04-07] MED LIST changes: +IOHEXOL 350 MG/ML 100ML INFUS..BTL IV ONE
== END | disposition home or self-care (01) ==
LOC: RAH 03-26 07:35
PROVIDERS: ATTEND Internal Medicine Cardiovascular Disease
DX: N28.1 Cyst of kidney, acquired (principal); I72.3 Aneurysm of iliac artery
CPT/HCPCS: 74174; Q9967

== ENCOUNTER 2022-12-31 18:29 | Emergency (ER) | payer MEDICAID ==
[~2022-12-31] VITALS: Ht 180.3 cm; Wt 68.0 kg
[~2022-12-31 18:29] MED LIST changes: +ACET-2079 PO; +AMLO-257 PO; +ATOR20TA65 PO; +CETI10TA57 PO; -HYDR-4060 PO; -IOHEXOL 350 MG/ML 100ML INFUS..BTL IV ONE; +LISI5TAB21 PO; +METF-444 PO; +METO25 PO; +TAMS-1 PO
[2023-01-01 03:05] VITALS: BP 134/58
== END 2023-01-01 04:04 | disposition home or self-care (01) ==
LOC: EDH 18:29
DX: M25.552 Pain in left hip (principal); Z89.622 Acquired absence of left hip joint; I10 Essential (primary) hypertension; Z79.84 Long term (current) use of oral hypoglycemic drugs; Z79.899 Other long term (current) drug therapy; Z98.890 Other specified postprocedural states; Z88.8 Allergy status to other drugs, medicaments and biological substances
CPT/HCPCS: 73502

== ENCOUNTER 2023-09-21 10:39 | Emergency (ER) | payer MEDICAID ==
[~2023-09-21] VITALS: Ht 180.3 cm; Wt 61.2 kg
[2023-09-21] MEDS ORDERED: METH4TAB3 PO (18:08)
[2023-09-21] MEDS ORDERED: ALBUHFA IH (18:08)
[2023-09-21] MEDS ORDERED: BENZ-39 PO (18:08)
[2023-09-21 19:45] VITALS: BP 154/74; PULSE 60; RESP 17; O2SAT 96
== END 2023-09-21 19:50 | disposition home or self-care (01) ==
LOC: EDH 10:39
DX: U09.9 Post COVID-19 condition, unspecified (principal); I10 Essential (primary) hypertension; Z79.899 Other long term (current) drug therapy; Z88.5 Allergy status to narcotic agent; Z88.6 Allergy status to analgesic agent
CPT/HCPCS: 71045